=== PATIENT | male | born 1985 | race Two or more races ===

== ENCOUNTER 2018-03-15 11:31 | Day surgery (SDC) | payer OTHER ==
[~2018-03-15 11:31] MED LIST: AMOXICILLIN/CLAVULANATE POT 875/125 MG TAB PO SCH
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
[2018-03-15 12:16] LABS: PLATELET COUNT 198 10^3/uL (150-400)
[2018-03-15] MEDS ORDERED: IOPAMIDOL (ISOVUE-300) 100 ML BTL ONE (12:46)
[2018-03-15] MEDS ORDERED: BUPIVACAINE 0.5% 30 ML SDV ONE (14:17)
[2018-03-15] MEDS ORDERED: LR 1,000 ML IV ONE (14:30)
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
[2018-03-15] MEDS ORDERED: MIDAZOLAM 2 MG/2 ML VIAL ONE (14:52)
[2018-03-15] MEDS ORDERED: MIDAZOLAM 2 MG/2 ML VIAL IVP ONE (14:54)
--- NOTE | 2018-03-15 14:54 | PDANEPAE ---
ANE Past Medical History - Cardiovascular History Hx Hypertension: No - Endocrine History Hx Diabetes: No ANE Review of Systems Review of Systems: ANE Patient History - Allergies Allergies/Adverse Reactions: No Known Allergies Allergy (Verified 03/15/18 11:42) - Home Medications Home medications: home medication list seen and reviewed Home Medications: NK [No Known Home Meds] 03/15/18 [Last Taken Unknown] - NPO status NPO Status: no food or drink >8 hours NPO Since - Liquids (Date): 03/15/18 NPO Since - Liquids (Time): 10:00 NPO Since - Solids (Date): 03/14/18 NPO Since - Solids (Time): 22:00 - Anes Hx Anes Hx: no prior problems (GA in [place]) - Smoking Hx Smoking Status: Never smoked ANE Labs/Vital Signs - Labs Result Diagrams: 03/15/18 12:05 03/15/18 12:05 - Vital Signs Blood Pressure: 136/94 Heart Rate: 99 Respiratory Rate: 18 O2 Sat (%): 97 Height: 165.1 cm Weight: 83.461 kg ANE Physical Exam - Airway Neck exam: FROM Mallampati Score: Class 2 Mouth exam: poor dentition, niño - Pulmonary Pulmonary: no respiratory distress - Cardiovascular Cardiovascular: regular rate and rhythym - ASA Status ASA Status: II, E ANE Anesthesia Plan Anesthesia Plan: general endotracheal anesthesia
[2018-03-15] MEDS ORDERED: fentaNYL 100 MCG/2 ML INJ ONE ×2 (14:58→16:12)
[2018-03-15] MEDS ORDERED: PROPOFOL 200 MG/20 ML VIAL ONE (14:58)
[2018-03-15] MEDS ORDERED: LIDOCAINE 2% 2 ML INJ ONE (14:59)
[2018-03-15] MEDS ORDERED: ROCURONIUM 50 MG/5 ML VIAL ONE (15:01)
[2018-03-15] MEDS ORDERED: GLYCOPYRROLATE 0.2 MG/1 ML VIAL ONE (15:01)
[2018-03-15] MEDS ORDERED: DEXAMETHASONE 4 MG/ML VIAL ONE (15:45)
[2018-03-15] MEDS ORDERED: ONDANSETRON 4 MG/2 ML VIAL ONE (15:45)
[2018-03-15] MEDS ORDERED: SUGAMMADEX SODIUM 200 MG/2 ML VIAL IVP ONE (15:54)
[2018-03-15] MEDS ORDERED: ONDANSETRON 4 MG/2 ML VIAL IVP PRN (15:56)
[2018-03-15] MEDS ORDERED: NALOXONE HCL 0.4 MG/ML INJ IVP PRN (15:56)
[2018-03-15] MEDS ORDERED: PROMETHAZINE HCL 25 MG/ML INJ IVP PRN (15:56)
--- NOTE | 2018-03-15 16:03 | POSTOPPROG ---
Post Op Note Date of Operation: 03/15/18 Surgeon: Wanda Tucker Anesthesiologist: alireza Anesthesia: GET(General Endotracheal) Pre-op Diagnosis: appendicitis Post-op Diagnosis: same Indication: 33 yo with acute appendicits Procedure: lap appy Findings: very inflamed appendix, near rupture Inf/Abcess present in the surg proc area at time of surgery?: No EBL: Minimal Specimen(s): appendix
[2018-03-15] MEDS ORDERED: KETOROLAC 30 MG/1 ML SDV ONE (16:05)
--- NOTE | 2018-03-15 16:11 | POSTANESTH ---
Post Anesthetic Evaluation Cardiovascular Status: Similar to Pre-Op Cond Respiratory Status: Similar to Pre-op Cond. Level of Consciousness/Mental Status: Can Participate in Eval Pain Control: Adequate, Prn Tx Ordered Nausea/Vomiting Control: Adequate, Prn Tx Ordered Complications Possibly Related to Anesthesia: None Noted
[2018-03-15] MEDS: fentaNYL 100 MCG/2 ML INJ IVP PRN ×2 (16:14→16:25)
--- NOTE | 2018-03-15 16:29 | GOP ---
DATE OF OPERATION: 03/15/2018 SURGEON: Wanda Tucker MD ANESTHESIA: General. ANESTHESIOLOGIST: Elio Maciel MD PREOPERATIVE DIAGNOSIS: Acute appendicitis. POSTOPERATIVE DIAGNOSIS: Same. PROCEDURE PERFORMED: Laparoscopic appendectomy. FINDINGS: Very inflamed appendix. SPECIMENS: Appendix. ESTIMATED BLOOD LOSS: 10 cc. INDICATIONS: The patient is a 33-year-old who had 3 days of abdominal pain. CT scan showed acute ap pendicitis. DESCRIPTION OF PROCEDURE: Patient was brought into the operating room, placed supine on the table, a nd general anesthesia was administered. His abdomen was prepped and draped in the usual sterile formerly [facility] ion. I infiltrated all sites with 0.5% Marcaine prior to making incisions. I made an incision at his umbilicus. I elevated it. I inserted the Veress needle. It passed the mercado nging drop test. His abdomen insufflated easily to a pressure of 15 mmHg. Under direct vision, I placed a 5 mm trocar with a camera at this site. There were no injuries from Veress needle placement. Under direct vision, I placed a 5 mm suprapubic trocar and a 10 mm trocar i n the left lower quadrant. His appendix was adhered to the cecum and the lateral sidewall. I gently peeled this away from the s idewall and divided the mesoappendix with the Harmonic Scalpel. I transected the base with an Endo-G IA 35 white load. There was a small amount of bleeding from the mesenteric fat, which was controlled with Harmonic Scalpel. Suction irrigation was performed. The appendix was placed in an EndoCatch b ag and removed via the 10 mm trocar. Abdomen explored. No injuries noted. Ports were removed under direct vision. The abdomen allowed to desufflate. The fascia at the 10 mm trocar site was closed with 0 Vicryl. Skin closed with 4-0 Monocryl. Dermabond applied. He was celestina kened in the operating room, extubated, and transferred to PACU in stable condition. /[id number]/MODL
[2018-03-15 16:55] VITALS: BP 115/85
== END 2018-03-15 17:53 | disposition home or self-care (01) ==
LOC: UNDOADMOB 13:30 → FSGY 13:30 → UNDODISOB 17:53 → FSGY 17:53
PROVIDERS: ATTEND Surgery
PROC: 0DTJ4ZZ Resection of Appendix, Percutaneous Endoscopic Approach (ICD-10-PCS; principal; 2018-03-15 15:00)
DX: K35.80 Unspecified acute appendicitis (principal); I10 Essential (primary) hypertension
CPT/HCPCS: 82435-PO; 82565-PO; 82947-PO; 84132-PO; 84295-PO; 84520-PO; 85014-PO; J0696; J1100; J1885; J2250; J2405; J2704; J3010; Q9967